=== PATIENT | male | born 1980 ===

== ENCOUNTER 2023-03-19 15:56 | Emergency (ER) | payer BC ==
[2023-03-19] MEDS: Lidocaine 4% 1 each Patch TOP SCH (16:46)
== END 2023-03-19 19:36 | disposition home or self-care (01) ==
LOC: MW.ED 15:56
DX: S29.9XXA Unspecified injury of thorax, initial encounter (principal); I10 Essential (primary) hypertension; E11.9 Type 2 diabetes mellitus without complications; X50.0XXA Overexertion from strenuous movement or load, initial encounter
CPT/HCPCS: 71101; 99283; A9270